=== PATIENT | male | born 1970 | race Caucasian/White ===

== ENCOUNTER → 2017-03-09 | Outpatient (CLI) | payer BC ==
[2017-03-09 08:33] LABS: CHCM 34.3; HDW 2.43; HGB 16.3 gm/dL (13.0-17.5); MCH 32.5 pg (25.0-35.0); MCHC 34.8 g/dL (31.0-37.0); MCV 93.6 fL (80.0-100.0); Mean Platelet Volume 7.2; RBC 5.02 m/uL (4.30-5.90); RDW 11.7 % (11.5-15.5); WBC 5.5 k/uL (3.8-10.6)
[2017-03-09 09:00] LABS: Appearance,Urine Clear (Clear); Bilirubin,Urine Negative (Negative); Glucose,Urine (UA) Negative (Negative); Ketones,Urine Negative (Negative); Leukocyte Esterase,Urine Negative (Negative); Nitrite,Urine Negative (Negative); PH, Urine 6.5 (5.0-8.0); Protein,Urine Negative (Negative); Specific Gravity,Urine 1.003 (1.001-1.035); UA Billing (MACRO vs. MICRO) CHEM; Urobilinogen,Urine <2.0 mg/dL (<2.0)
[2017-03-09 10:37] LABS: ALT 47 U/L (21-72); AST 23 U/L (17-59); Alkaline Phosphatase 63 U/L (38-126); Anion Gap 9 mmol/L; Blood Urea Nitrogen 10 mg/dL (9-20); Calcium 9.5 mg/dL (8.4-10.2); Carbon Dioxide 28 mmol/L (22-30); Chloride 103 mmol/L (98-107); Cholesterol 163 mg/dL (<200); Creatine Kinase 100 U/L (55-170); Glucose 94 mg/dL (74-99); HDL Cholesterol 52 mg/dL (40-60); Non-African American GFR(MDRD) >60 (>60 ml/min/1.73 sqM); Potassium 4.6 mmol/L (3.5-5.1); Sodium 140 mmol/L (137-145); Total Bilirubin 0.7 mg/dL (0.2-1.3); Triglycerides 108 mg/dL (<150)
[2017-03-09 12:06] LABS: Hemoglobin A1C 5.1 % (4.2-6.1)
== END | disposition home or self-care (01) ==
LOC: LABWHC1 07:59
PROVIDERS: ATTEND Family Medicine
DX: I10 Essential (primary) hypertension (principal); E78.5 Hyperlipidemia, unspecified; Z51.81 Encounter for therapeutic drug level monitoring
CPT/HCPCS: 36415; 80053; 80061; 81003; 82550; 83036; 84153; 84443; 85027

== ENCOUNTER → 2018-05-11 | Outpatient (CLI) | payer BC ==
[2018-05-11 11:25] LABS: HCT 48.8 % (39.0-53.0); HGB 16.1 gm/dL (13.0-17.5); MCHC 32.9 g/dL (31.0-37.0); MCV 94.2 fL (80.0-100.0); Mean Platelet Volume 7.1; Platelet Count 232 k/uL (150-450); RBC 5.18 m/uL (4.30-5.90); RDW 11.9 % (11.5-15.5); WBC 6.6 k/uL (3.8-10.6)
[2018-05-11 11:37] LABS: ALT 31 U/L (21-72); AST 23 U/L (17-59); Albumin 4.2 g/dL (3.5-5.0); Alkaline Phosphatase 51 U/L (38-126); Anion Gap 9 mmol/L; Blood Urea Nitrogen 12 mg/dL (9-20); Calcium 9.2 mg/dL (8.4-10.2); Carbon Dioxide 27 mmol/L (22-30); Chloride 104 mmol/L (98-107); Cholesterol 163 mg/dL (<200); Creatine Kinase 148 U/L (55-170); Glucose 91 mg/dL (74-99); HDL Cholesterol 47 mg/dL (40-60); LDL Cholesterol,Calculated 94 mg/dL (0-99); Potassium 4.3 mmol/L (3.5-5.1); Sodium 140 mmol/L (137-145); Total Protein 7.2 g/dL (6.3-8.2); Triglycerides 111 mg/dL (<150)
[2018-05-11 11:39] LABS: Appearance,Urine Clear (Clear); Bilirubin,Urine Negative (Negative); Blood,Urine Negative (Negative); Color,Urine Yellow; Glucose,Urine (UA) Negative (Negative); Ketones,Urine Negative (Negative); Leukocyte Esterase,Urine Negative (Negative); Nitrite,Urine Negative (Negative); PH, Urine 5.5 (5.0-8.0); Protein,Urine Negative (Negative); Specific Gravity,Urine 1.016 (1.001-1.035); Urobilinogen,Urine <2.0 mg/dL (<2.0)
== END | disposition home or self-care (01) ==
LOC: LABWHC1 10:32
PROVIDERS: ATTEND Family Medicine
DX: Z00.00 Encounter for general adult medical examination without abnormal findings (principal); E78.5 Hyperlipidemia, unspecified; I10 Essential (primary) hypertension; Z23 Encounter for immunization
CPT/HCPCS: 36415; 80053; 80061; 81003; 82550; 83036; 84443; 85027

== ENCOUNTER → 2019-07-08 | Outpatient (CLI) | payer OTHER ==
--- NOTE | 2019-07-09 09:06 | CT ---
EXAMINATION TYPE: CT abdomen pelvis wo con DATE OF EXAM: 07/08/2019 COMPARISON: None HISTORY: Left lower quadrant pain x [address] DLP: 529 mGycm Automated exposure control for dose reduction was used. TECHNIQUE: Helical acquisition of images was performed from the lung bases through the pelvis. FINDINGS: LUNG BASES: Punctate 2 mm right lower lobe pulmonary nodule seen on series 4 image 5. LIVER/GB: Unenhanced liver is unremarkable in morphology. No radiopaque calculi in the gallbladder. PANCREAS: Punctate calculus is seen within the pancreatic tail sequela of chronic pancreatitis. No ev idence of acute pancreatitis. SPLEEN: Small splenule is noted adjacent to the [place] spleen. ADRENALS: No significant abnormality is seen. KIDNEYS: No hydronephrosis or nephrolithiasis. Fluid attenuated 8mm left upper pole renal cyst is par tially visualized without contrast. Probable column of Toño is seen in the right renal midpole on axial image 32 and coronal image 48. This could be confirmed with CT with contrast of the abdomen. FREE AIR: No free air is visualized ADENOPATHY: No greater than 1 cm short axis lymph node in the abdomen or pelvis. REPRODUCTIVE ORGANS: Heterogenous with central zone calcifications OSSEOUS STRUCTURES: Very minimal degenerative changes of the visualized thoracolumbar spine. BOWEL: Few colonic diverticula are seen without pericolonic fat stranding. Appendix is air-filled an d within normal limits. OTHER: There are patulous fat-containing inguinal rings. No herniation of bowel. Low lying bowel is s een in the pelvis extending towards the patulous inguinal canals. Mild degree of atherosclerosis in the abdominal aorta and its branches. IMPRESSION: 1. NO CT FINDING TO ACCOUNT FOR THE PATIENT'S LEFT-SIDED ABDOMINAL PAIN. COLONIC DIVERTICULOSIS WITHO UT EVIDENCE OF ACUTE DIVERTICULITIS. 2. PROBABLE COLUMN OF TOÑO IN THE RIGHT MIDPOLE ALTHOUGH RENAL SINUS MASS IS A LESS LIKELY CONSIDER ATION. CT ABDOMEN WITH CONTRAST COULD ENSURE NO UNDERLYING MASS. 3. PATULOUS FAT FILLED INGUINAL CANALS WITH ADJACENT LOW LYING BOWEL. NO DISCRETE HERNIATION. 4. PUNCTATE 2 MM PULMONARY NODULE IN THE RIGHT LOWER LOBE. GIVEN ITS SMALL SIZE CT THORAX COULD BE PE RFORMED IN 12 MONTHS TO ENSURE STABILITY. ALTERNATIVELY FULL CHARACTERIZATION OF THE CHEST COULD BE P ERFORMED WITH CT THORAX AT THIS TIME.
== END | disposition home or self-care (01) ==
LOC: RADCTMAIN 14:19
PROVIDERS: ATTEND Family Medicine
DX: K57.30 Diverticulosis of large intestine without perforation or abscess without bleeding (principal)
CPT/HCPCS: 74176; Q9967

== ENCOUNTER → 2020-11-27 | Outpatient (CLI) | payer BC ==
[2020-11-27 16:23] LABS: African American GFR (CKD) >90 (>60 ml/min/1.73 sqM); Blood Urea Nitrogen 12 mg/dL (9-20); Non-African American GFR(CKD) >90 (>60 ml/min/1.73 sqM)
--- NOTE | 2020-11-27 16:41 | CT ---
EXAMINATION TYPE: High-resolution CT chest DATE OF EXAM: 11/27/2020 COMPARISON: None HISTORY: 50-year-old male R91.1, pulmonary nodules, N28.9 renal lesion. TECHNIQUE: Contiguous high-resolution axial scanning of the chest utilizing 1 mm slice thickness and 1 cm gap without IV contrast. Both supine and prone imaging is performed. CT DLP: 314 mGycm Automated exposure control for dose reduction was used. FINDINGS: Heart normal size without pericardial effusion. Ectatic aortic root at 3.8 cm. Ascending aorta ectatic at 3.6 cm. Bovine configuration to the aortic arch.. Allowing for HRCT technique, no thoracic lymphadenopathy is identified. Biapical pleural parenchymal scarring with emphysematous blebs and a couple bulla measuring up to 4.4 cm at the apices. Some paraseptal emphysema is also noted in the upper lungs. Mild diffuse bronchial wall thickening. HRCT technique is limited for assessment of bony nodules. No thickening of the bron chovascular bundles, tree-in-bud opacities, centrilobular nodules, dominant areas of groundglass, hon eycombing, or bronchiectasis. Visualized upper abdomen shows no gross abnormality. Bones: No osseous destructive process is seen. IMPRESSION: 1. COPD WITH MILD EMPHYSEMA THOUGH WITH SOME PROMINENT APICAL BLEBS/BULLA AT THE APICES MEASURING UP TO 4.4 CM. 2. NO HRCT FINDINGS OF CHRONIC INTERSTITIAL LUNG DISEASE OR INTERSTITIAL PNEUMONITIS. 3. NOTE THAT HRCT TECHNIQUE IS LIMITED FOR ASSESSMENT OF PULMONARY NODULES. IF CONCERN FOR PULMONARY NODULES, CONSIDER SHORT INTERVAL FOLLOW-UP CONVENTIONAL CT CHEST.
--- NOTE | 2020-11-28 11:58 | CT ---
EXAMINATION TYPE: CT abdomen pelvis w con DATE OF EXAM: 11/27/2020 COMPARISON: 07/08/2019 INDICATION: left sided abdominal pain, hx of renal lesion DLP: 378.7 mGycm, Automated exposure control for dose reduction was used. CONTRAST: 100 mL of Isovue 300. Study performed with Oral Contrast TECHNIQUE: Axial images were obtained from above the diaphragm to the pubic rami in the axial plane a t 5 mm thick sections. Reconstructed images are reviewed on the computer in the coronal plane. FINDINGS: Limited CT sections are obtained the lung bases. The lung bases are clear. CT ABDOMEN: Liver: Normal Spleen: Normal Pancreas: Normal Adrenal glands: The adrenal glands are normal. Gallbladder: Normal Kidneys: No masses are evident. No hydronephrosis is present. Tiny cysts is at the superior pole le ft kidney. Delayed images were obtained through the kidneys, which remain unremarkable. There is bree e fullness within the right mid renal sinus which follows the appearance of renal cortex. Findings ma y be related to Column of Toño. No interval change is evident from 2019. Aorta: Vascular calcification is within the aorta. Inferior vena cava: Normal. CT PELVIS: Loops of bowel within the abdomen and pelvis are normal. There are loops of bowel which are incom pletely distended or lack oral contrast limiting their evaluation. Appendix: Normal as visualized. Urinary bladder: Normal. Genitourinary structures: Posterior is unremarkable. Osseous structures: No suspicious lytic or sclerotic lesions. IMPRESSIONS: 1. No suspicious abnormality to account for left-sided abdomen pain.
== END | disposition home or self-care (01) ==
LOC: RADCTMAIN 15:43
PROVIDERS: ATTEND Family Medicine
DX: R10.9 Unspecified abdominal pain (principal)
CPT/HCPCS: 82565; 84520; 71250; 74177; 36415; Q9967

== ENCOUNTER 2021-04-20 09:16 | Day surgery (SDC) | payer BC ==
[2021-04-16 10:42] VITALS: BMI 20.9
[~2021-04-20 09:16] MED LIST: LACTATED RINGERS 1,000 ML IV SCH
[2021-04-20 09:36] VITALS: TEMP 98
[2021-04-20] MEDS ORDERED: LIDOCAINE 1% (10MG/ML) FOR IV START INTRADERMA ONE (09:44)
[2021-04-20] MEDS ORDERED: PROPOFOL 10 MG/ML 20 ML VIAL IV ONE (10:14)
--- NOTE | 2021-04-20 10:19 | P.GSHP ---
History of Present Illness H&P Date: 04/20/21 Chief Complaint: Colon cancer screening 51-year-old male here today for screening colonoscopy. He has not had 1 previously. No bowel complaints. No family history of colon cancer. Past Medical History Past Medical History: COPD, Hyperlipidemia, Hypertension Additional Past Medical History / Comment(s): mild emphysema per pt. History of Any Multi-Drug Resistant Organisms: None Reported Past Surgical History: Hernia Repair Additional Past Surgical History / Comment(s): VASECTOMY, lipomas removed from leg Past Anesthesia/Blood Transfusion Reactions: No Reported Reaction Smoking Status: Former smoker - Past Family History Mother Family Medical History: Pulmonary Embolus Sister(s) Family Medical History: Cancer Additional Family Medical History / Comment(s): BRAIN CANCER Medications and Allergies Home Medications Medication Instructions Recorded Confirmed Type Atorvastatin [Lipitor] 10 mg PO HS 11/06/14 04/16/21 History lisinopriL [Zestril] 20 mg PO HS 04/16/21 04/16/21 History Allergies Allergy/AdvReac Type Severity Reaction Status Date / Time No Known Allergies Allergy Verified 04/16/21 10:40 Surgical - Exam Vital Signs Temp Pulse Resp BP Pulse Ox 98.0 F 60 18 126/89 99 04/20/21 09:32 04/20/21 09:32 04/20/21 09:32 04/20/21 09:32 04/20/21 09:32 Physical exam: General: Well-developed, well-nourished HEENT: Normocephalic, sclerae nonicteric Abdomen: Nontender, nondistended Extremities: No edema Neuro: Alert and oriented Assessment and Plan (1) Colon cancer screening Narrative/Plan: Will proceed with colonoscopy at this time Current Visit: Yes Status: Acute Code(s): Z12.11 - ENCOUNTER FOR SCREENING FOR MALIGNANT NEOPLASM OF COLON SNOMED Code(s): 058056156
--- NOTE | 2021-04-20 10:34 | P.PCN ---
Date of Procedure: 04/20/21 Procedure(s) Performed: PREOPERATIVE DIAGNOSIS: Colon cancer screening POSTOPERATIVE DIAGNOSIS: Polyps, diverticulosis PROCEDURE: Colonoscopy with snare polypectomy ANESTHESIA: MAC SURGEON: Uziel Wren M.D. SPECIMENS: Polyps ENDOSCOPIC PROCEDURE: The patient was placed on the endoscopy table in the left decubitus position. The Olympus colonoscope was inserted into the anus and passed under direct visualization to the base of the cecum. The appendiceal orifice was visualized. From that point the scope was slowly withdrawn inspecting all surfaces carefully. There were no neoplastic inflammatory or polypoid lesions throughout the cecum or ascending colon. In the transverse colon a small polyp was seen and removed using the snare with cautery technique. The patient's polyp appeared to be mostly fulgurated and I could not see a specimen at the time in our container. The remainder of the transverse, descending and sigmoid colon appeared normal. In the rectum another small polyp was removed using the snare with cautery technique. There were 2 pieces of the polyp in the specimen container and one of these may have represented the transverse colon polyp. The remainder of the rectum was normal. The patient had scattered diverticulosis throughout the colon. Digital rectal examination was normal. The patient was taken to the recovery room in stable condition per anesthesia guidelines. RECOMMENDATIONS: Await biopsy results.
[2021-04-20 10:38] VITALS: RESP 16
[2021-04-20 10:58] VITALS: BP 105/72; PULSE 65
== END 2021-04-20 11:28 | disposition home or self-care (01) ==
LOC: ORWHC2ENDO 09:16
PROVIDERS: ATTEND Surgery
DX: Z12.11 Encounter for screening for malignant neoplasm of colon (principal); K62.1 Rectal polyp; K57.90 Diverticulosis of intestine, part unspecified, without perforation or abscess without bleeding; D12.3 Benign neoplasm of transverse colon; E78.5 Hyperlipidemia, unspecified; I10 Essential (primary) hypertension; J44.9 Chronic obstructive pulmonary disease, unspecified; Z87.891 Personal history of nicotine dependence
CPT/HCPCS: 45385; 88305; J2704

== ENCOUNTER → 2023-03-03 | Outpatient (CLI) | payer BC ==
--- NOTE | 2023-03-03 12:01 | CTL ---
EXAMINATION TYPE: CT Low Dose Lung DATE OF EXAM ORDERED: 03/03/2023 HISTORY: . Lung cancer screening CT DLP: 65.[address] CTDI: 1.76 mGy Automated exposure control for dose reduction was used. SCREENING VISIT: COMPARISON: 12/07/2020 TECHNIQUE: Low dose computed tomography scan was performed through the chest at 1 mm thick sections a nd reconstructed images in multiple planes at 1 mm and [address] DIAGNOSTIC QUALITY: Satisfactory FINDINGS: Heart size is normal. Mild atherosclerotic changes of aorta with maximal dimension 3.3 cm and no evid ence of aneurysm. No significant coronary artery calcification. Noncontrast limits assessment the exam for adenopathy. Grossly no pathologic adenopathy seen. There is paraseptal emphysematous changes. Mild central lobular emphysematous changes seen. There is no evidence of consolidative pneumonia or heart failure. There is no pleural effusion. There is a subpleural nodule measuring 2 mm right lower lobe axial image 231 series 4. Within the left upper lobe there is a 2 mm subpleural nodule axial image 2 5 series 4. Additional 1 mm micronodule subpleural location are benign. There are subsegmental areas of consolidation involving the anterior segment right upper lobe compati ble with atelectasis. Linear pleural based masses density in the left lower lobe is likely on the bas is of scarring. Biapical pleural-based thickening. IMPRESSION: 1. Advanced paraseptal of this numbness changes with mild central lobular emphysema 2. Sub-5 mm bilateral pulmonary nodules too small to characterize but have a benign appearance. CT LUNG RAD AND CT CHEST RECOMMENDATION: Lung-Rad 2 Benign Appearance or Behavior: Continue annual sc reening with LDCT in 12 months.
== END | disposition home or self-care (01) ==
LOC: RADCTMAIN 09:39
PROVIDERS: ATTEND Family Medicine
DX: Z12.2 Encounter for screening for malignant neoplasm of respiratory organs (principal); J43.2 Centrilobular emphysema; R91.8 Other nonspecific abnormal finding of lung field; Z87.891 Personal history of nicotine dependence
CPT/HCPCS: 71271

== ENCOUNTER → 2024-03-08 | Outpatient (CLI) | payer BC ==
--- NOTE | 2024-03-08 09:47 | CTL ---
EXAMINATION TYPE: CT Low Dose Lung DATE OF EXAM: 03/08/2024 8:25 AM CLINICAL INDICATION:Male, 54 years old with history of Z12.2 Screening Z87.891 Personal hx of nicotin e de; PErsonal history of nicotine dependence , history of tobacco use. COMPARISON: 03/03/2023. TECHNIQUE: Multiple axial non-contrast scans were obtained from approximately the lung apices through the upper abdomen. Coronal and sagittal reformatted images were obtained. Low dose technique was uti lized. CT DLP: 57.20 mGycm, Automated exposure control for dose reduction was used. CT Contrast: Contrast used: None Oral contrast used: None FINDINGS: ======== Lack of intravenous contrast and low dose technique limits the evaluation of the vascular and soft ti ssue structures. LUNGS: No evidence of pulmonary fibrosis. No evidence of focal consolidation, pneumothorax or pleural effusion. Centrilobular emphysema changes. Nodules: RUL: None. RML: None. RLL: 1 mm series 5 image 43. KAYLIE: None. LLL: None. AIRWAY: Patent and unremarkable. HEART: Size within normal limits. MEDIASTINUM: No gross evidence of adenopathy. VASCULATURE: No aortic aneurysm. MUSCULOSKELETAL: No acute osseous abnormalities SOFT TISSUES/LYMPH NODES: Unremarkable. LOWER NECK: No significant findings. UPPER ABDOMEN: No significant findings. IMPRESSION: 1. No clinically significant pulmonary nodules. 2. Mild emphysema. CT LUNG RAD AND CT CHEST RECOMMENDATION: Lung-Rad 2 Benign Appearance or Behavior: Continue annual sc reening with LDCT in 12 months. S Modifier (other clinically significant findings): None Recommend smoking cessation (if current smoker), or continuation of smoking cessation (if prior smoke r). Annual screening for lung cancer with low-dose computed tomography is recommended in adults ages 55 to 77 years who have a 30 pack-year smoking history and currently smoke or have quit within the pa st 15 years. Screening should be discontinued once a person has not smoked for 15 years or develops a health problem that substantially limits life expectancy or the ability or willingness to have curat jenny lung surgery. Lung rads 2021 [email or web address]
== END | disposition home or self-care (01) ==
LOC: RADCTMAIN 07:56
PROVIDERS: ATTEND Family Medicine
DX: Z12.2 Encounter for screening for malignant neoplasm of respiratory organs (principal); Z87.891 Personal history of nicotine dependence; J43.9 Emphysema, unspecified
CPT/HCPCS: 71271